=== PATIENT | female | born 1965 | race Caucasian/White ===

== ENCOUNTER 2022-11-09 11:35 | Outpatient (OUT) | payer OTHER, SELFPAY ==
[2022-11-09 13:08] LABS: Thyroid Stimulating Hormone 0.766 uIU/mL (0.358-3.740)
[2022-11-09 14:45] LABS: Free T4 0.73 ng/dL (0.76-1.46)
== END 2022-11-09 11:36 ==
LOC: LAB 11:38
PROVIDERS: PCP Family Medicine; Visit Provider Family Medicine
DX: E03.9 Hypothyroidism, unspecified (principal)
CPT/HCPCS: 36415; 84439; 84443

== ENCOUNTER 2024-01-12 14:59 | Outpatient (OUT) | payer OTHER, SELFPAY ==
[2024-01-12 15:29] LABS: Basophils Percent Auto 0.5 % (0.2-2.0); Eosinophils Absolute Auto 0.1 10^3/uL (0.0-0.7); Eosinophils Percent Auto 1.7 % (0.9-7.0); Hematocrit 41.8 % (36.0-48.0); Hemoglobin 13.4 g/dL (12.0-16.0); Immature Granulocytes Abs Auto 0.01 10^3/uL (0.00-0.03); Immature Granulocytes Pct Auto 0.2 % (0.0-0.5); Lymphocytes Absolute Auto 2.4 10^3/uL (1.2-3.8); Lymphocytes Percent Auto 41.3 % (20.5-60.0); Mean Corpuscular HGB Conc 32.1 g/dL (29.9-35.2); Mean Corpuscular Hemoglobin 28.6 pg (26.7-34.0); Mean Corpuscular Volume 89.1 fL (81.0-99.0); Mean Platelet Volume 10.2 fL (9.5-13.5); Monocytes Absolute Auto 0.4 10^3/uL (0.3-0.8); Monocytes Percent Auto 7.5 % (1.7-12.0); Neutrophils Absolute Auto 2.8 10^3/uL (1.4-6.5); Neutrophils Percent Auto 48.8 % (43.0-75.0); Platelet Count 266 10^3/uL (150-450); Red Blood Count 4.69 10^6/uL (4.20-5.40); Red Cell Distribution Width 12.7 % (11.0-15.0); White Blood Count 5.8 10^3/uL (4.0-11.0)
[2024-01-12 16:13] LABS: Anion Gap 10.5; BUN Creatinine Ratio 16.4; Calcium 9.7 mg/dL (8.5-10.1); Carbon Dioxide 30.5 mmol/L (21.0-32.0); Chloride 103 mmol/L (98-107); Estimated GFR (African America >60 (>=60); Estimated GFR (Non-African Ame >60 (>=60); Glucose 102 mg/dL (74-106); Sodium 140 mmol/L (136-145); Thyroid Stimulating Hormone 0.035 uIU/mL (0.358-3.740)
[2024-01-12 16:32] LABS: Free T4 1.29 ng/dL (0.76-1.46)
== END 2024-01-12 15:00 | disposition home or self-care (01) ==
LOC: LAB 15:00
PROVIDERS: PCP Family Medicine; Visit Provider Family Medicine
DX: R53.83 Other fatigue (principal); E03.9 Hypothyroidism, unspecified; E53.8 Deficiency of other specified B group vitamins
CPT/HCPCS: 36415; 80048; 82607; 84439; 84443; 85025

== ENCOUNTER 2024-03-21 10:57 | Outpatient (OUT) | payer OTHER, SELFPAY ==
[2024-03-21 11:05] LABS: Bilirubin Urine NEGATIVE (NEGATIVE); Blood Urine NEGATIVE (NEGATIVE); Clarity Urine CLEAR (CLEAR); Color Urine LT. YELLOW (YELLOW); Glucose Urine UA NEGATIVE (NEGATIVE); Ketones Urine NEGATIVE (NEGATIVE); Leukocyte Esterase Urine NEGATIVE (NEGATIVE); Nitrite Urine NEGATIVE (NEGATIVE); Protein Urine NEGATIVE (NEG/TRACE); Urobilinogen Urine 0.2 EU/dL (0.2-1.0)
--- OUTSIDE RECORDS SUMMARY | 2024-03-21 11:15 | XMS_ITS | CCD ---
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 11-16-2032 DTaP,Tdap and Td Vaccines (2 - Td or Tdap) DTaP,Tdap and Td Vaccines (2 - Td or Tdap) [facility] Start: 11-16-2032 DTaP/Tdap/Td vaccine (2 - Td or Tdap) DTaP/Tdap/Td vaccine (2 - Td or Tdap) [facility] Start: 09-08-2026 Screening for malignant neoplasm of cervix [facility] Start: 02-14-2026 Screening for malignant neoplasm of breast Breast cancer screen [facility] Start: 03-15-2025 Adult BMI Screening Adult BMI Screening [facility] Start: 03-15-2025 Tobacco Screening Tobacco Screening [facility] Start: 02-21-2025 Depression Screen Depression Screen [facility] Start: 09-13-2024 End: 09-13-2024 Patient encounter procedure 09/13/2024 2:00 PM EDT Office Visit [facility] [address] [place] [address] [address] [place] [address] Johan Raza MD [address] [place] [address], [address] [place] [address] [facility] Start: 09-08-2024 Screening for malignant neoplasm of cervix Pap smear [facility] Start: 08-31-2024 Adult BMI Screening Adult BMI Screening [facility] Start: 08-31-2024 Tobacco Screening Tobacco Screening [facility] Start: 07-21-2024 Adult BMI Screening Adult BMI Screening [facility] Start: 07-21-2024 Tobacco Screening Tobacco Screening [facility] Start: 06-28-2024 End: 06-28-2024 Patient encounter procedure 06/28/2024 10:00 AM EST Office Visit [facility] [address] [place] [id number] Kyle Gallego MD [address] [place] [id number] [facility] Start: 06-23-2024 Adult BMI Screening Adult BMI Screening [facility] Start: 06-23-2024 Tobacco Screening Tobacco Screening [facility] Start: 06-01-2024 Adult BMI Screening Adult BMI Screening [facility] Start: 06-01-2024 Tobacco Screening Tobacco Screening [facility] Start: 03-15-2024 End: 03-15-2025 XR Ankle - right 3 Views X-ray ankle right minimum 3 views Imaging Routine Closed displaced pilon fracture of right tibia with routine healing, subsequent encounter Expected: 03/15/2024, Expires: 03/15/2025 [employer] Work Phone: Comment on above: Expected: 03/15/2024, Expires: Start: 03-08-2024 End: 03-08-2025 Cortisol, morning Cortisol, morning Lab Routine Acquired hypothyroidism (CMS/HCC) Expected: 03/08/2024 (Approximate), Expires: 03/08/2025 [facility] Comment on above: Expected: 03/08/2024 (Approximate), Expi res: 03/08/2025 Start: 03-08-2024 End: 03-08-2025 Thyroglobulin Antibody Thyroglobulin Antibody Lab Routine Acquired hypothyroidism (CMS/HCC) Expected: 03/08/2024 (Approximate), Expires: 03/08/2025 [facility] Comment on above: Expected: 03/08/2024 (Approximate), Expi res: 03/08/2025 Start: 03-08-2024 End: 03-08-2025 Thyroid peroxidase antibody Thyroid peroxidase antibody Lab Routine Acquired hypothyroidism (CMS/HCC) Expected: 03/08/2024 (Approximate), Expires: 03/08/2025 [facility] Comment on above: Expected: 03/08/2024 (Approximate), Expi res: 03/08/2025 Start: 03-08-2024 End: 03-08-2025 Thyrotropin [Units/volume] in Serum or Plasma TSH Lab Routine Acquired hypothyroidism (CMS/HCC) Expected: 03/08/2024 (Approximate), Expires: 03/08/2025 [facility] Comment on above: Expected: 03/08/2024 (Approximate), Expi res: 03/08/2025 Start: 03-08-2024 End: 03-08-2025 Thyroxine (T4) free [Mass/volume] in Serum or Plasma T4, free Lab Routine Acquired hypothyroidism (CMS/HCC) Expected: 03/08/2024 (Approximate), Expires: 03/08/2025 [facility] Comment on above: Expected: 03/08/2024 (Approximate), Expi res: 03/08/2025 Start: 03-08-2024 End: 03-08-2025 Triiodothyronine (T3) Free [Mass/volume] in Serum or Plasma T3, free Lab Routine Acquired hypothyroidism (CMS/HCC) Expected: 03/08/2024 (Approximate), Expires: 03/08/2025 [facility] Work Phone: Comment on above: Expected: 03/08/2024 (Approximate), Expi res: 03/08/2025 Start: 03-08-2024 End: 03-08-2025 Vitamin D 1,25 dihydroxy Vitamin D 1,25 dihydroxy Lab Routine Vitamin D deficiency Expected: 03/08/2024 (Approximate), Expires: 03/08/2025 [facility] Comment on above: Expected: 03/08/2024 (Approximate), Expi res: 03/08/2025 Start: 03-08-2024 End: 03-08-2024 Patient encounter procedure 03/08/2024 11:20 AM EDT Office Visit [facility] [address] [place] [id number] Kyle Gallego MD [address] [place] [id number] Arrived [facility] Comment on above: Arrived Start: 02-23-2024 End: 02-23-2024 Patient encounter procedure 02/23/2024 11:30 AM EDT Appointment [facility] Physical Therapy [address] [place] [phone] Kalpesh Li, PT HE[facility] Physical Therapy Comment on above: HEATHER PT [facility] Start: 02-22-2024 End: 02-22-2024 Patient encounter procedure 02/22/2024 2:10 PM EDT Office Visit [facility] [address] [place] [address] Emma Hernandez, [facility] [address] [place] [address] yearly [facility] Comment on above: yearly Start: 02-20-2024 End: 02-20-2024 Patient encounter procedure 02/20/2024 12:00 PM EDT Appointment [facility] Physical Therapy [address] [place] [phone] Beatrice Schmitz PTA [facility] Physical Therapy Start: 02-16-2024 End: 02-16-2024 Patient encounter procedure 02/16/2024 12:00 PM EDT Appointment [facility] Physical Therapy [address] [place] [phone] Beatrice Schmitz PTA [facility] Physical Therapy Start: 02-15-2024 End: 02-15-2024 Patient encounter procedure 02/15/2024 11:30 AM EDT Appointment [facility] [address] [place] [phone] Routine [facility] Comment on above: Routine Start: 02-13-2024 End: 02-13-2024 Patient encounter procedure 02/13/2024 12:00 PM EDT Appointment [facility] Physical Therapy [address] [place] [phone] Beatrice Schmitz, ARTIST SUSPECT [facility] Physical Therapy Start: 02-10-2024 End: 02-10-2024 Patient encounter procedure [facility] Start: 02-08-2024 End: 02-08-2024 Patient encounter procedure 02/08/2024 11:15 AM EDT Appointment [facility] Physical Therapy [address] [place] [phone] Beatrice Schmitz PTA [facility] Physical Therapy Start: 02-05-2024 COVID-19 Vaccine ( season) COVID-19 Vaccine ( season) [facility] Start: 02-05-2024 Influenza vaccination Influenza Vaccine [facility] Start: 02-02-2024 End: 02-02-2024 Patient encounter procedure [facility] Physical Therapy Comment on above: 02/09 APPT MOVED TO 11:30 Start: 01-30-2024 End: 01-30-2024 Patient encounter procedure 01/30/2024 12:00 PM EDT Appointment [facility] Physical Therapy [address] [place] [phone] Beatrice Schmitz PTA [facility] Physical Therapy Start: 01-27-2024 End: 01-27-2024 Patient encounter procedure [facility] Physical Therapy Comment on above: 02/01 MOVED TO 11:45 INSTEAD OF 12 Start: 01-23-2024 End: 01-23-2024 Patient encounter procedure 01/23/2024 12:00 PM EDT Appointment [facility] Physical Therapy [address] [place] [phone] Beatrice Schmitz PTA [facility] Physical Therapy Start: 01-19-2024 End: 01-19-2024 Patient encounter procedure 01/19/2024 12:00 PM EDT Appointment [facility] Physical Therapy [address] [place] [phone] Beatrice Schmitz PTA [facility] Physical Therapy Start: 01-16-2024 End: 01-16-2024 Patient encounter procedure 01/16/2024 12:45 PM EDT Appointment [facility] Physical Therapy [address] [place] [phone] Beatrice Schmitz PTA [facility] Physical Therapy Start: 01-05-2024 Influenza vaccination Flu vaccine (#1) [facility] Start: 11-03-2023 End: 11-03-2023 Patient encounter procedure 11/03/2023 12:45 PM EDT [facility] [id number] Johan Raza MD [address] [facility] [place] [address] [facility] Start: 09-30-2023 Screening for malignant neoplasm of breast Breast cancer screen [facility] Start: 09-16-2023 End: 09-16-2023 Patient encounter procedure 09/16/2023 11:30 AM EDT Appointment [facility] Physical Therapy [address] [place] [phone] Kalpesh Li, PT [facility] Physical Therapy Start: 09-14-2023 End: 09-14-2023 Patient encounter procedure 09/14/2023 9:15 AM EDT Appointment [facility] Physical Therapy [address] [place] [phone] Kalpesh Li, PT [facility] Physical Therapy Start: 09-09-2023 End: 09-09-2023 Patient encounter procedure 09/09/2023 1:15 PM EDT Appointment [facility] Physical Therapy [address] [place] [phone] Kim Nava PTA [facility] Physical Therapy Start: 09-07-2023 End: 09-07-2023 Patient encounter procedure 09/07/2023 10:00 AM EDT Appointment [facility] Physical Therapy [address] [place] [phone] Alexa Schaffer PTA [facility] Physical Therapy Start: 09-01-2023 End: 08-31-2024 XR Pelvis and Hip - right 2 Views [facility] Work Phone: Comment on above: Expected: 09/01/2023, Expires: Start: 09-01-2023 End: 09-01-2023 Patient encounter procedure 09/01/2023 12:45 PM EDT Office Visit [facility] [address] [place] [address] Johan Raza MD [facility] [place] [address] [facility] Start: 08-24-2023 End: 08-23-2024 XR Ankle - right 3 Views X-ray ankle right minimum 3 views Imaging Routine Closed displaced pilon fracture of right tibia with routine healing, subsequent encounter Expected: 08/24/2023, Expires: 08/23/2024 [facility] Work Phone: Comment on above: Expected: 08/24/2023, Expires: Start: 08-04-2023 End: 08-04-2023 Patient encounter procedure 08/04/2023 10:30 AM EST Appointment [facility] Physical Therapy [address] [place], [place] [phone] Kalpesh Li, PT [facility] Physical Therapy Start: 08-02-2023 End: 08-02-2023 Patient encounter procedure 08/02/2023 10:00 AM EST Appointment [facility] Physical Therapy [address] [place], [place] [phone] Aaron Prater, PT [facility] Physical Therapy Start: 08-01-2023 End: 08-01-2023 Patient encounter procedure 08/01/2023 10:30 AM EST Appointment [facility] Physical Therapy [address] [place], [place] [phone] Kalpesh Li, PT [facility] Therapy Start: 07-28-2023 End: 07-28-2023 Patient encounter procedure 07/28/2023 10:30 AM EST Appointment [facility] Physical Therapy [address] [place] [phone] Kalpesh Li, PT [facility] Therapy Start: 07-26-2023 End: 07-26-2023 Patient encounter procedure [facility] Start: 07-25-2023 End: 07-25-2023 Patient encounter procedure 07/25/2023 11:15 AM EST Appointment [facility] Physical Therapy [address] [place] [phone] Aaron Prater, PT [facility] Physical Therapy Start: 07-22-2023 End: 07-22-2023 Patient encounter procedure 07/22/2023 9:30 AM EST Appointment [facility] Physical Therapy [address] [place], [place] [phone] Kim Nava PTA [facility] Physical Therapy Start: 07-21-2023 End: 07-21-2023 Patient encounter procedure [facility] Start: 07-21-2023 End: 07-21-2023 Patient encounter procedure 07/21/2023 10:30 AM EST Appointment [facility] Physical Therapy [address] [place] [address] [phone] Kalpesh Li PT [facility] Physical Therapy Start: 07-19-2023 End: 07-19-2024 XR Ankle - right 3 Views X-ray ankle right minimum 3 views Imaging Routine Closed displaced pilon fracture of right tibia with routine healing, subsequent encounter Expected: 07/19/2023, Expires: 07/19/2024 [facility] Work Phone: Comment on above: Expected: 07/19/2023, Expires: Start: 07-19-2023 End: 07-19-2023 Patient encounter procedure 07/19/2023 10:45 AM EST Appointment [facility] Physical Therapy [address] [place] [phone] Aaron Prater PT [facility] Physical Therapy Start: 06-23-2023 End: 06-23-2023 Patient encounter procedure 06/23/2023 1:30 PM EST Office Visit [facility] [address] [place] [address] [address] [place] [phone] Johan Raza MD [address] [place] [address], [address] [place] [address] [facility] Start: 02-04-2023 COVID-19 Vaccine ( season) COVID-19 Vaccine ( season) [facility] Start: 02-04-2023 Influenza vaccination Influenza Vaccine [facility] Start: 01-04-2023 Influenza vaccination Flu vaccine (#1) [facility] Start: 10-04-2022 Screening for malignant neoplasm of cervix [facility] Start: 09-16-2022 End: 09-16-2022 Patient encounter procedure 09/16/2022 Office Visit Obstetrics and Gynecology Emma Hernandez, PUBLIC HEALTH MICROBIOLOGIST - CNM [address] [facility] [address] [place] [phone] [facility] Start: 09-08-2022 Depression Screen Depression Screen [facility] Start: 02-04-2022 Influenza vaccination Flu vaccine (Season Ended) [facility] Start: 09-29-2021 End: 09-29-2021 Patient encounter procedure 09/29/2021 Appointment Radiology [facility] Start: 10-04-2020 Screening for malignant neoplasm of cervix Pap smear [facility] Start: 01-14-2019 Screening for malignant neoplasm of breast Breast cancer screen [facility] Start: 08-04-2017 Administration of varicella zoster vaccine Zoster (Shingles) Vaccine (1 of 2) [facility] Start: 08-04-2017 Shingles Vaccine (1 of 2) Shingles Vaccine (1 of 2) [facility] Start: 08-04-2012 Screening for malignant neoplasm of colon [facility] Start: 2007 Lipid panel [facility] Start: 08-04-2002 Diabetes screen Diabetes screen [facility] Start: 08-04-1988 Screening for malignant neoplasm of cervix Pap Smear [facility] Start: 08-04-1986 DTaP/Tdap/Td vaccine (1 - Tdap) DTaP/Tdap/Td vaccine (1 - Tdap) [facility] Start: 08-04-1986 Hepatitis B vaccine (1 of 3 - 19+ 3-dose series) Hepatitis B vaccine (1 of 3 - 19+ 3-dose series) [facility] [facility] Start[facility] 08-[facility]-1985 Adult BMI Follow Up Plan Adult BMI Follow Up Plan [facility] Start: 08-04-1985 Hepatitis C screening Hepatitis C screen [facility] Start: 08-04-1982 HIV screening HIV screen [facility] Start: 1979 Depression Screen Depression Screen [facility] Start: 1979 Depression Screening Depression Screening [facility] Start: 08-04-1972 COVID-19 Vaccine (1) COVID-19 Vaccine (1) [facility] Start: 02-05-1968 COVID-19 Vaccine (#1) COVID-19 Vaccine (#1) [facility] Start: 1967 Hepatitis B vaccine (1 of 3 - 3-dose series) Hepatitis B vaccine (1 of 3 - 3-dose series) [facility] Start: 1967 Hepatitis C screening Hepatitis C screen [facility] End: 09-08-2021 Cytopathology procedure, preparation of smear, genital source PAP SMEAR Lab Routine Well woman exam with routine gynecological exam Screening for HPV (human papillomavirus) 1 Occurrences starting 09/08/2021 until 09/08/2021 [facility] [employer] Work Phone: Comment on above: 1 Occurrences starting 09/08/2021 until 09/08/2021 [facility] Immunizations Immunization Date Immunization Notes [facility] tetanus toxoid, reduced diphtheria toxoid, and acellular pertussis vaccine, adsorbed Teresita Peguero RN [facility] Payers Date Payer Category Payer Self-pay 2022 Unknown [id number] 2022 Unknown [id number] 2022 Unknown [id number] 2022 Unknown 23 2021 Unknown [id number]. 1.13.424.2.7.3.850708.315 1967 Unknown [id number] 2.16.84 0.1.713739.3.579.2.593 1967 Unknown [id number] 2.16.84 0.1.443245.3.579.2.593 1967 Unknown [id number] 2.16.84 0.1.826741.3.579.2.593 1967 Unknown [id number] 2.16.8 40.1.681860.3.579.2.1286 1967 Unknown [id number] 2.16.8 40.1.264976.3.579.2.1286 1967 Unknown [id number] 2.16.8 40.1.378835.3.579.2.173 1967 Unknown [id number] 2.16.8 40.1.701429.3.579.2.173 1967 Unknown [id number] 2.16.8 40.1.277447.3.579.2.173 1967 Unknown [id number] 2.16.8 40.1.392893.3.579.2.173 1967 Unknown [id number] 2.16.8 40.1.005049.3.579.2.173 1967 Unknown [id number] 2.16.8 40.1.071951.3.579.2.173 1967 Unknown [id number] 2.16.8 40.1.723478.3.579.2.173 1967 Unknown [id number] 2.16.8 40.1.902054.3.579.2.173 1967 Unknown [id number] 2.16.8 40.1.493546.3.579.2.173 1967 Unknown [id number] 2.16.8 40.1.744670.3.579.2.173 1967 Unknown [id number] 2.16.8 40.1.121899.3.579.2.173 1967 Unknown [id number] 2.16.8 40.1.158350.3.579.2.173 1967 Unknown [id number] 2.16.8 40.1.107887.3.579.2.173 1967 Unknown [id number] 2.16.8 40.1.981099.3.579.2.173 1967 Unknown [id number] 2.16.8 40.1.668584.3.579.2.173 1967 Unknown [id number] 2.16.8 40.1.515137.3.579.2.173 1967 Unknown [id number] 2.16.8 40.1.540428.3.579.2.173 1967 Unknown [id number] 2.16.8 40.1.622192.3.579.2.173 1967 Unknown [id number] 2.16.8 40.1.767672.3.579.2.173 1967 Unknown [id number] 2.16.8 40.1.793795.3.579.2.173 1967 Unknown [id number] 2.16.8 40.1.267547.3.579.2.173 1967 Unknown [id number] 2.16.8 40.1.804263.3.579.2.173 1967 Unknown [id number] 2.16.8 40.1.329551.3.579.2.173 1967 Unknown [id number] 2.16.8 40.1.257026.3.579.2.173 1967 Unknown [id number] 2.16.8 40.1.865805.3.579.2.173 1967 Unknown [id number] 2.16.8 40.1.774104.3.579.2.173 1967 Unknown [id number] 2.16.8 40.1.284210.3.579.2.173 1967 Unknown [id number] 2.16.8 40.1.801035.3.579.2.173 1967 Unknown [id number] 2.16.8 40.1.512808.3.579.2.173 1967 Unknown [id number] 2.16.8 40.1.629907.3.579.2.173 1967 Unknown [id number] 2.16.8 40.1.382989.3.579.2.173 1967 Unknown [id number] 2.16.8 40.1.658114.3.579.2.173 1967 Unknown [id number] 2.16.8 40.1.800632.3.579.2.173 1967 Unknown [id number] 2.16.8 40.1.118874.3.579.2.173 1967 Unknown [id number] 2.16.84 0.1.473643.3.579.2.1259 1967 Unknown [id number] 2.16.8 40.1.561878.3.579.2.1285 1967 Unknown [id number] 2.16.8 40.1.940755.3.579.2.1285 1967 Unknown [id number] 2.16.8 40.1.141057.3.579.2.1285 1967 Unknown [id number] 2.16.8 40.1.028336.3.579.2.1285 1967 Unknown [id number] 2.16.8 40.1.174989.3.579.2.1285 1967 Unknown [id number] 2.16.8 40.1.682852.3.579.2.1285 1967 Unknown [id number] 2.16.8 40.1.566581.3.579.2.1285 1967 Unknown [id number] 2.16.8 40.1.727101.3.579.2.1285 1967 Unknown [id number] 2.16.8 40.1.016585.3.579.2.1285 1967 Unknown [id number] 2.16.8 40.1.310977.3.579.2.1285 1967 Unknown [id number] 2.16.8 40.1.863872.3.579.2.1285 1967 Unknown [id number] 2.16.84 0.1.678496.3.579.2.1285 1967 Unknown [id number] 2.16.84 0.1.198871.3.579.2.1285 1967 Unknown [id number] 2.16.84 0.1.557595.3.579.2.1286 1967 Unknown [id number] 2.16.84 0.1.844330.3.579.2.6 1967 Unknown [id number] 2.16.840 .1.016400.3.579.2.1286 1967 Unknown [id number] 2.16.840 .1.742859.3.579.2.6 1967 Unknown [id number] 2.16.840 .1.770496.3.579.2.1286 1967 Unknown [id number] 2.16.840. 1.969208.3.579.2.6 1959 Unknown [id number] 1.2.840.502430.1.13.239.2.7.3.950354.315 Unknown [id number] 2.16.8 40.1.358695.3.579.2.531 Unknown Sherie RODRIGUEZ/NATE [id number] Social History Date Type Detail Facility Start: 09-07-2017 End: 11-03-2023 Tobacco smoking status [facility] Ex-smoker [facility] End: 06-06-1998 History of tobacco use Cigarette Smoker [employer] Phone: Start: 09-07-2017 End: 11-03-2023 Tobacco use and exposure Smokeless tobacco non-user [employer] Phone: Start: 09-08-2021 End: 03-15-2024 Alcohol intake Current drinker of alcohol (finding) [facility] Phone: Start: 07-17-2020 End: 09-08-2021 Alcohol intake [facility] Start: 10-04-2017 History SDOH Alcohol Comment socially [employer] Phone: Start: 1965 [facility]: Start: 08-29-2021 End: 09-08-2021 Exposure to SARS-CoV-2 (event) Not sure [facility] Start: 07-17-2020 End: 06-01-2023 [facility] End: 06-06-1998 History of tobacco use Current smoker [facility] Are you worried or concerned that in the next two months you may not have stable housing that you own, rent or stay in as a part of a household? No [facility] Start: 04-17-2019 Alcohol Comment social [facility] Start: 1965 Sex Assigned At Female [facility] Start: 02-20-2024 End: 03-08-2024 Alcoholic beverage intake Ex-drinker (finding) [facility] Medical Equipment Procedure Code Equipment Code Equipment Origin al Text Equipment Identifier Dates Incv/Swivelock 4 .75 Use [id number] - [id number] Start: 05-01-2019 Clamp Xtrnfx 11m m 8mm Cmbn Clpon Slf Hld Mr Conditional Ns - [id number] Start: 11-17-2022 Wire Fx Krsh .06 2in 4in [address] Ss Ns - [id number] Start: 11-17-2022 Wire Xtrnfx 1.8m m Rdc Hlf Pnt Tip Mri Safe - [id number] Start: 12-06-2022 Wire Xtrnfx 1.8m m Smth Mri Safe Hlf Pnt Tip Ns - [id number] Start: 12-06-2022 11.0 Mm Carbon F iber Rods, Mr Conditional, 300 Mm [id number] Start: 11-17-2022 Screw Xtrnfx 125 mm 4mm Schnz Hip Cndyl Ss Slf Drl Mr - [id number] Start: 11-17-2022 Screw Xtrnfx 170 mm 5mm Schnz Xlng Ss Blnt Troc Pnt Lg Rpl [id number] - [id number] Start: 12-06-2022 Washer 7mm Orth Ss Ns Rpl Special [id number] - [id number] Start: 12-06-2022 Clamp Xtrnfx Lg Repro Mr Conditional Cmbn Ns - [id number] Start: 11-17-2022 Clamp Xtrnfx Lg Opn Adj Mr Conditional Ns - [id number] Start: 11-17-2022 Pin Fx 225mm 5mm Stnm Ss Cntr Thrd Ns Lg Xtrnfxtr - [id number] Start: 11-17-2022 Endy Xtrnfx 200mm 11mm Cfbr Mr Conditional Repro Ns - [id number] Start: 11-17-2022 Endy Xtrnfx 250mm 11mm Cfbr Mr Conditional Ns - [id number] Start: 11-17-2022 Screw Xtrnfx 170 mm 5mm Schnz Xlng Ss Blnt Troc Pnt Lg Rpl [id number] - [id number] Start: 11-17-2022 Screw Bn 45mm 2. [address] Sphrcl Hd Sm Hex Sckt Baron Ss 2.5 - [id number] Start: 12-06-2022 Goals Date Patient Goal Desired Activity /State Personal health goal Comment on above: Formatting of this n ote might be different from the original. Evaluation of progress towards goal: Patient goal is to discharge home with family support. Clinical Notes 11-09-2022 to 03-15-2024 Johan Raza MD - 03/15/2024 1:45 PM Ritchie Gallego MD - 03/08/2024 11:20 AM Kalpesh Whitney, PT - 02/23/2024 11:30 AM EDTTelephone Encounter - Debo Forrest CMA - 09/09/2023 2:31 PM EDT Note Date & Type Note Facility 03-15-2024 History of Presen t illness Narrative Chief complaint: Right ankle pilon fracture status post ring ex fix removal Date of surgery: 05/23/2023 HPI: Heather Ayon is a 58 y.o. female status post operative management of the aforementioned ankle fracture. Patient is now 10 months out from ring ex fix removal. Patient is weight-bearing as tolerated to the right lower extremity in a regular shoe. Patient states that she continue with physical therapy making improvements. Patient states that her swelling is improved. Patient states that her pain is improved. Patient did see Dr. Burnham for her right hip. Physical exam General: Well-developed well-nourished Mentation: Alert and oriented. right LE: Previous incisions and pin sites well healed Minimal ankle swelling present SILT s/s/sp/dp/pt, + motor fxn EHL, FHL, DF, PF. Comparments & calves soft and compressible Palpable pulses with BCR x 5 Ankle range of motion: Dorsiflexion: 5 degree Plantar flexion: 40 Inversion/eversion: 5 Radiographic imaging personally viewed and identify: 3 views right ankle identify well healed tibia fracture with posttraumatic osteoarthritis ASSESSMENT: Heather Ayon is a 58 y.o. female status post right ankle pilon fracture treated in ring ex fix PLAN: Weight-bearing as tolerated right lower extremity Continue working on strengthening Compression sock for swelling as needed Rocker bottom shoes for posttraumatic osteoarthritis as needed for pain control Continue taking calcium and vitamin-D for bone health and healing potential Patient may return to work on 04/09/2024 without restrictions Will see the patient back for follow-up visit in 6 months with x-rays of the right ankle. All questions encouraged and addressed at today's visit Dulce Snyder PA-C I, JOHAN RAZA MD, personally performed the face to face evaluation on this patient. I discussed with the patient and confirmed the accuracy and completeness of the aforementioned history prepared by the [facility] provider, and I personally performed the clinical examination of the patient. I discussed the treatment plan with the patient. Returned to follow up today after ring ex fix management of her pilon fracture. Her swelling is improving. Her wounds look great. Her x-rays are showing continued signs of consolidation with some mild posttraumatic arthritis. Clinically she is doing very well. From my standpoint no restrictions in the ankle. She did see Dr. Burnham for evaluation of her hip. From my standpoint no restrictions on her ankle she is going to return to work. We will check an x-ray on her in 6 months and go from there. Overall I think is a very good clinical result for a very challenging pilon fracture. LEVEL OF SERVICE: Ortho [facility] Diagnosis Complexity -: [4] MODERATE: 1 acute, complicated injury Ortho Data Level: [3] Ortho Data Limited Category 1 (need 2): Review of results and Order unique tests Ortho Tx/Test Risk Level (highest): [3] Ortho Low Risk Options: OTC meds LEVEL OF MDM -: [3] LOW level based on above criteria. Johan Raza MD documented in this encounter [facility] [employer] 03-08-2024 History of Presen t illness Narrative Heather Ayon is a 58 y.o. female Kyle Gallego MD presents with chief complaint of Hypothyroidism HPI: HPI 03/2024 New patient sent from Dr. Selin Brown for hypothyroidism, she had it for almost 5 years, she used to be on 50 then increased to 75 then to 100, lab in January/2024 overcorrected TSH 0.035, free T4 1.9 she stopped the medication for almost 2 weeks,, and now she is here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 swelling in the PM that makes her sore. Exercises: Exercise 2: Baps board level 3, forward/back x20, side/side x20, CW/CCW x20 ea - rocker board today Exercise 3: Foot roller x2 minutes Exercise 4: Yellow theraband plantaflexion 2x20, dorsiflexion 2x20, ankle eversion 2x20 Exercise 6: Gastrocnemius stretch with strap 2x30 seconds/soleus stretch with strap 2x30 seconds Exercise 8: [place] oyster picker, all marbles Exercise 11: SciFIT bike level 1 x6 minutes Modality: Modality Flow Sheet: Performed (X) Tx Modality Electrical Stim: IFC with CP x15 minutes to decrease pain Assessment Assessment: The patient has attended her initial evaluation and 3 follow-up appointments working toward her strength and ROM goals. She has been able to progress with weightbearing in the CAM boot. Her ankle ROM measures: dorsiflexion: 10*, plantarflexion: 42*, inversion: 21*, and eversion: 8*. Ankle strength measures: dorsiflexion: 4+/5, eversion 4-/5, inversion 4/5. Will continue with her current POC. Activity Tolerance Activity Tolerance: Patient tolerated treatment well Patient Education Patient Education: Continue HEP Pt verbalized/demonstrated good understanding: [x] Yes [] No, pt required further clarification. Post Treatment Pain: 0/10 Plan Plan Frequency: 2-3 Plan weeks: 6-8 Goals (Total # of Visits to Date: 4) Short Term Goals Time Frame for Short Term Goals: 3 weeks Short Term Goal 1: Patient to initiate HEP for improved R ankle ROM and strength -MET Short Term Goal 2: Patient to be instructed in open chain progressing to closed chain R ankle strengthening as tolerated to improve stability. Short Term Goal 3: Initiate manual techniques/modalities prn to decrease pain and improve R ankle/foot mobility -MET Detention Goals Time Frame for Stock Shipper Goals : 6 weeks Stock Shipper Goal 1: Patient to be independent and compliant with HEP. Detention Goal 2: Patient to have improved R ankle AROM DF: 15*, PF: 50*, Inv: 20*, Ev: 10* with no increase in pain for improved mobility. Detention Goal 3: Patient to have improved R ankle strength >/=4+/5 all planes for improved stability. Detention Goal 4: Pt to progress to full WB'ing on R LE as allowed per physician and return to gait with no AD and no gait deviations with no increase in pain to return to PLOF. Minutes Tracking: Time In: 1045 Time Out: 1147 Minutes: 62 Timed Code Treatment Minutes: 60 Minutes Aaron Prater PT, DPT Date: 07/19/2023 documented in this encounter [facility] 06-23-2023 History of Presen t illness Narrative Chief complaint: Right ankle pilon fracture Date of surgery: 05/23/2023 HPI: Heather Ayon is a 57 y.o. female status post operative management of the aforementioned ankle fracture. she is maintaining weight-bearing restrictions. she is not working with physical therapy. her pain is improving over time. Denies fever chills nausea and vomiting. Denies chest pain shortness of breath. Denies numbness tingling paresthesias. Physical exam General: Well-developed well-nourished Mentation: Alert and oriented. right LE: Inspection: Incision clean dry intact; no redness or erythema or drainage. SILT s/s/sp/dp/pt, + motor fxn EHL, FHL, DF, PF. Comparments & calves soft and compressible Palpable pulses with BCR x 5 Radiographic imaging personally viewed and identify: 3 views right ankle identify maintained alignment of pilon fracture status post removal retained ring external fixator ASSESSMENT: Heather Ayon is a 57 y.o. female status post right ankle pilon fracture PLAN: The patient is doing very well from this orthopedic injury. We will have her begin a partial progressive weight-bearing program of 50 lb of weight on her right lower extremity in her Cam orthotic boot she will increase by 25 lb on the right leg each week as tolerated. She is provided with a physical therapy referral to work on this with her physical therapist. The patient should come out of her Cam boot many times throughout the day to work on ankle range of motion. Recommend a knee-high compression stocking to be worn during the day and off at night to help with edema and pain control. Continue taking calcium and vitamin-D for bone health healing potential This is a worker's compensation case and we will request physical therapy. Will see the patient back for follow-up visit in 6 weeks with x-rays of the right ankle. All questions encouraged and addressed at today's visit CHRISTA MOFFETT PA-C I, JOHAN RAZA MD, personally performed the face to face evaluation on this patient. I discussed with the patient and confirmed the accuracy and completeness of the aforementioned history prepared by the [facility] provider, and I personally performed the clinical examination of the patient. I discussed the treatment plan with the patient. Clinically she is doing pretty well. Her motion is good. Her x-rays are stable. At this point will start a partial progressive weight-bearing program. She does understand she will get some degree of arthrosis from this but will have to see how does clinically for her. Overall think she is doing pretty well. Johan Raza MD. MDM: Postoperative global Johna Raza MD [facility] Miscellaneous Notes Sun notified that we have withdrawn C-9 to add post traumatic arthritis right knee. [facility] 06-10-2023 Telephone encounter Note Sun notified that we have withdrawn C-9 to add post traumatic arthritis right knee. [facility] 06-07-2023 Miscellaneous Notes [employer] IS CALLING TO GET ADDITIONAL ALLOWANCE ON C9 SHE CAN BE REACHED AT [phone] Let us work on this tomorrow [place] Wishdenise Christa C-9 to add post traumatic arthritis right knee Dx to claim is withdrawn documented in this encounter [facility] [employer] 06-07-2023 Telephone encounter Note [employer] IS CALLING TO GET ADDITIONAL ALLOWANCE ON C9 SHE CAN BE REACHED AT [phone] [facility] 06-07-2023 Telephone encounter Note Let us work on this tomorr Maria Del Carmen Christa [facility] 06-07-2023 Telephone encounter Note 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 06 Ashvin, 2023 Weight gain, abnormal (ICD-10 - R63.5) Will assess labs. Discussed various OTC and rx modalities for weight loss. Will wait on that to receive labs back first. Nov, Other obesity due to excess calories (ICD-10 - E66.09) As above - Discussed diet and exercise. Also discussed hormone testing through her WEATHERIZATION ADMINISTRATOR and or compounded treatment through [facility]. Nov, Body mass index [BMI] 32.0-32.9, adult (ICD-10 - Z68.32) [facility] [employer] Other Evaluation note* Diagnosis Well woman exam with routine gynecological exam Routine gynecological examination Screening for HPV (human papillomavirus) Special screening examination for human papillomavirus (HPV) documented in this encounter [facility] Work Phone: evaluation noteNo InformationNortEncompass [facility] [employer] Other Evaluation note* Diagnosis Closed displaced pilon fracture of right tibia with routine healing, subsequent encounter- Primary [facility] Diagnosis Closed displaced pilon fracture of right tibia with routine healing, subsequent encounter [facility] Diagnosis Closed displaced pilon fracture of right tibia with routine healing, subsequent encounter- Primary [facility]* Diagnosis Closed displaced pilon fracture of right tibia with routine healing, subsequent encounter- Primary [facility]* Diagnosis Closed displaced pilon fracture of right tibia with routine healing, subsequent encounter- Primary [facility]* Diagnosis Closed displaced pilon fracture of right tibia with routine healing, subsequent encounter- Primary Right hip pain Pain in joint, pelvic region and thigh documented [facility]* Diagnosis Onset Date Resolution Status Fatigue acute Hypothyroidism (acquired) [facility] Work Phone: Evaluation note* Diagnosis Visit for screening mammogram Other screening mammogram [facility] Diagnosis Acquired hypothyroidism (CMS/HCC)- Primary Unspecified hypothyroidism Vitamin D deficiency Encounter for dietary consultation Fatigue, unspecified type documented [facility]* Diagnosis Closed displaced pilon fracture of right tibia with routine healing, subsequent encounter [facility] - Reported* Type Description Date Medical History Weight gain, abnormal Medical History Menopausal disorder Medical History Fibromyalgia Medical History Visual changes Medical History Abdominal pain, diffuse Medical History Hypothyroidism (acquired) Surgical History TONSILLECTOMY Surgical History ADENOIDECTOMY Surgical History X2 Hospitalization History SEE SURGICAL HX [employer] Other InstructionsNot on filedocumented in this encounter [facility] filedocumented in this encounter [facility]ructionsNot on filedocumented in this encounter [facility]ructionsNot on filedocumented in this encounter [facility]Not on filedocumented in this encounter [facility]InstructionsNot on filedocumented in this encounter [facility] SystemReason for referral (narrative)* Consultation (Routine) - Authorized Specialty Diagnoses / Procedures Referred By Parish maier Referred To Contact Rehabilitation Diagnoses Closed displaced pilon fracture of right tibia with routine healing, subsequent encounter Christa Moffett PA [address] [place] [address], [address] [place] [address] [facility] [address] [place] [phone] Referral ID Status Reason Start Date Expiration Date Visits Requested Visits Authorized [id number] Authorized Specialty Services Required 06/23/2023 06/22/2024 1 1 [facility] Advance Directives Documents on File Type Date Recorded 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 Expl 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 ACP-Advance Directive ACP-Power of Supervisor Files Latest Code Status on File Code Status Date Activated Date Inactivated Comments Full Code 11/16/2022 11:41 PM 11/18/2022 6:20 PM Latest Code Status on File Code Status Date Activated Date Inactivated Comments Full Code 11/16/2022 11:41 PM 11/18/2022 6:20 PM Advance Directive Response Recorded Date/ Time Advance Directives No December 01 12:41pm Date Activated Date Inactivated Comments 11/16/2022 11:41 PM 11/18/2022 6:20 PM Summary Purpose Family History Relationship Condition Age at Onset Recorded Date/T carlos brother Heart disease Unknown father Unknown Hypertension Unknown mother Heart disease Unknown Unknown Reason for Referral Specialty Diagnoses / Procedures Referred By Parish maier Referred To Contact Radiology Diagnoses Visit for screening mammogram Procedures GIUSEPPE MONICA DIGITAL SCREEN SELF REFERRAL W OR WO CAD BILATERAL García Snyder PA [address] [place] [address] Referral ID Status Reason Start Date Expiration Date Visits Re quested Visits Authorized [id number] Closed 02/15/2024 02/14/2025 1 1 Specialty Diagnoses / Procedures Referred By Parish maier Referred To Contact Rehabilitation Diagnoses Closed displaced pilon fracture of right tibia with routine healing, subsequent encounter Dulce Snyder PA-C [address] [place] [address] [facility] [address] [facility] [place] [address] Referral ID Status Reason Start Date Expiration Date Visits Requested Visits Authorized [id number] Pending Review Specialty Services Required 07/21/2023 07/21/2024 12 12 Specialty Diagnoses / Procedures Referred By Parish maier Referred To Contact Diagnoses Closed displaced pilon fracture of right tibia with routine healing, subsequent encounter Procedures Disability/Handicap Placard Dulce Snyder PA-C [address] [place] [address] Referral ID Status Reason Start Date Expiration Date V isits Requested Visits Authorized [id number] Pending Review 07/21/2023 07/20/2024 1 1 Chief Complaint and Reason for Visit Chief Complaint Fatigue Reason for Visit Fatigue Hypothyroidism (acquired) Additional Source Comments Care Teams (unrecognized sec tion and content) Automobile Technician Relationship Specialty Start Date End Date Selin Brown MD PCP - General Family Medicine 12/01/16 Automobile Technician Relationship Specialty Start Date End Date Selin Brown MD [address] [place] [address] PCP - General Family Medicine 04/17/19 Automobile Technician Relationship Specialty Start Date End Date Selin Brown MD [address] [place] [address] PCP - General Family Medicine 04/17/19 Automobile Technician Relationship Specialty [place] [address] [place] [id number] PCP - General Family Medicine 04/17/19 Automobile Technician Relationship Specialty Start Date End Date Selin Brown MD PCP - General Family Medicine 12/01/16 Automobile Technician Relationship Specialty Start Date End Date Selin Brown MD PCP - General Family Medicine 12/01/16 Automobile Technician Relationship Specialty Start Date End Date Selin Brown MD [address] [place], [place] [id number] PCP - General Family Medicine 04/17/19 Automobile Technician Relationship Specialty Start Date End Date Selin Brown MD PCP - General Family Medicine 12/01/16 Automobile Technician Relationship Specialty Start Date End Date Selin Brown MD PCP - General Family Medicine 12/01/16 Automobile Technician Relationship Specialty Start Date End Date Selin Brown MD [address] [place] [address] PCP - General Family Medicine 04/17/19 Automobile Technician Relationship Specialty Start Date End Date Selin Brown MD PCP - General Family Medicine 12/01/16 Automobile Technician Relationship Specialty Start Date End Date Selin Brown MD [address] [facility] [place] [address] PCP - General Family Medicine 04/17/19 Team Status: Active Member Role Status Dates Selin Brown MD Primary Care Provider Active Team Status: Inactive Member Role Status Dates Selin Brown MD Primary Care Provide r, Attending Provider Active Start: January 12, 2024 End: January 12, 2024 Automobile Technician Relationship Specialty Start Date End Date Selin Brown MD PCP - General Family Medicine 12/01/16 Automobile Technician Relationship Specialty Start Date End Date Selin Brown MD PCP - General Family Medicine 12/01/16 Automobile Technician Relationship Specialty Start Date End Date Selin Brown MD PCP - General Family Medicine 12/01/16 Automobile Technician Relationship Specialty Start Date End Date Selin Brown MD PCP - General Family Medicine 12/01/16 Automobile Technician Relationship Specialty Start Date End Date Selin Brown MD [address] [place] [facility] [address] PCP - General Family Medicine 11/09/22 Automobile Technician Relationship Specialty Start Date End Date Selin Brown MD [address] [place] [address] PCP - General Family Medicine 11/09/22 Automobile Technician Relationship Specialty Start Date End Date Selin Brown MD [facility] [place] [id number] PCP - General Family Medicine 04/17/19 INFORMATION SOURCE (unrecogn ized section and content) DATE CREATED AUTHOR 11/25/2021 [facility] DATE CREATED AUTHOR AUTHOR'S ORGANIZ ATION 06/17/2022 [facility] DATE CREATED AUTHOR AUTHOR'S ORGANIZ ATION 11/19/2022 [facility] DATE CREATED AUTHOR AUTHOR'S ORGANIZ ATION 01/31/2024 [facility] DATE CREATED AUTHOR AUTHOR'S ORGANIZ ATION 03/02/2024 [facility] DATE CREATED AUTHOR AUTHOR'S ORGANIZ ATION 03/10/2024 [facility] EPIC DATE CREATED AUTHOR AUTHOR'S ORGANIZ ATION 03/11/2024 [facility] DATE CREATED AUTHOR AUTHOR'S ORGANIZ ATION 03/17/2024 [facility] REASON FOR VISIT (unrecogniz ed section and content) Reason Comments Establish Care Follow-up Reason Comments Hypothyroidism Specialty Diagnoses / Procedures Referred By Parish t Referred To Contact Radiology Diagnoses Visit for screening mammogram Procedures GIUSEPPE MONICA DIGITAL SCREEN SELF REFERRAL W OR WO CAD BILATERAL García Snyder PA [address] [place] [address] Referral ID Status Reason Start Date Expiration Date Visits Re quested Visits Authorized [id number] Closed 02/15/2024 02/14/2025 1 1 Reason Comments Establish Care R pilon fx, Follow-up Reason Comments Establish Care Right Pilon F Follow-up Reason Comments Med Refill Reason Comments Establish Care Right Pilon Fx Follow-up Refillmessagemedication discussion Goals (unrecognized section and content) Goals may be documented in a n alternate section FOR RECORDS PERTAINING TO PATIENTS WHO ARE OR HAVE BEEN ENROLLED IN A CHEMICAL DEPENDENCY/SUBSTANCEABUSE PROGRAM, SOME INFORMATION MAY BE OMITTED. This clinical summary was aggregated from multiple sources. Caution should be exercised in using it in the provision of clinical care. This summary normalizes information from multiple sources, and as a consequence, information in this document may materially change the coding, format and clinical context of patient data. In addition, data may be omitted in some cases. CLINICAL DECISIONS SHOULD BE BASED ON THE PRIMARY CLINICAL RECORDS. [facility] [employer] [facility]. provides no warranty or guarantee of the accuracy or completeness of information in this document.
== END 2024-03-21 10:58 | disposition home or self-care (01) ==
LOC: LAB 10:58
PROVIDERS: PCP Family Medicine; Visit Provider Family Medicine
DX: R10.9 Unspecified abdominal pain (principal)
CPT/HCPCS: 81003; 87086